=== PATIENT | female | born 1985 ===

== ENCOUNTER 2021-02-13 22:35 | Inpatient (IN) | payer BC, OTHER ==
[2021-02-13] MEDS: ELECTROLYTE-148 SOLN 1,000 ML IV SCH (23:45)
[2021-02-13 23:53] LABS: BASO % 0.5 % (0-2.0); EOS % 0.8 % (0-4.5); HEMATOCRIT 31.8 % (32.4-45.2); HEMOGLOBIN 10.7 GM/dL (10.7-15.3); LYMPH % 21.2 % (8-40); MCH 29.2 pg (25.7-33.7); MCHC 33.5 g/dl (32.0-36.0); MEAN CELL VOLUME 87.2 fl (80-96); MEAN PLT VOLUME 10.2 fl (7.5-11.1); MONO % 8.2 % (3.8-10.2); NEUT % 69.3 % (42.8-82.8); PLATELET COUNT 211 K/MM3 (134-434); RBC 3.65 M/mm3 (3.60-5.2); RDW 15.8 % (11.6-15.6); WHITE BLOOD COUNT 8.2 K/mm3 (4.0-10.0)
[2021-02-13] MEDS ORDERED: ELECTROLYTE-148 SOLN 500 ML IV ONE (23:57)
[2021-02-13] MEDS ORDERED: CITRIC ACID/SODIUM CITRATE 30 ML UNIT-DOSE CUP PO ONE (23:59)
[2021-02-14 00:02] LABS: INR 0.88 (0.83-1.09); PROTHROMBIN TIME (PATIENT) 10.9 SEC (9.7-13.0)
[2021-02-14 00:05] LABS: ACTIVATED PTT 25.7 SECONDS (25.2-36.5)
[2021-02-14 00:15] LABS: CALCIUM 9.6 mg/dL (8.5-10.1)
[2021-02-14 00:17] LABS: BLOOD UREA NITROGEN 10.1 mg/dL (7-18)
[2021-02-14 00:20] LABS: CREATININE 0.9 mg/dL (0.55-1.3)
[2021-02-14] MEDS ORDERED: morphine SULFATE/PF 0.5 MG/ML (2cc Syringe - QUVA) ONE (01:09)
[2021-02-14] MEDS ORDERED: ceFAZolin SODIUM 1 GM VIAL ONE (01:10)
[2021-02-14] MEDS ORDERED: ONDANSETRON 4 MG/2 ML VIAL ONE (01:10)
[2021-02-14] MEDS ORDERED: PHENYLEPHRINE HCL 10 MG/1 ML SINGLE DOSE VIAL ONE (01:10)
[2021-02-14] MEDS ORDERED: KETOROLAC TROMETHAMINE 30 MG/1 ML VIAL ONE (01:10)
[2021-02-14] MEDS ORDERED: OXYTOCIN 10 UNITS/ML VIAL ONE (01:10)
[2021-02-14 01:13] LABS: HIV INTERPRETATION NEGATIVE (NEGATIVE)
[2021-02-14] MEDS ORDERED: METHYLERGONOVINE MALEATE 0.2 MG/1 ML AMP IM PRN (02:05)
[2021-02-14] MEDS ORDERED: IBUPROFEN 600 MG TABLET (FP) PO PRN (02:05)
[2021-02-14] MEDS ORDERED: NIFEdipine E.R. 30 MG TABLET PO STA (02:08)
[2021-02-14] MEDS ORDERED: OXYTOCIN 20 UNITS in 0.9% NS 20 UNIT/1,000 ML INFUS.BAG IV SCH (02:15)
[2021-02-14] MEDS ORDERED: morphine SULFATE/PF 0.5 MG/ML (2cc Syringe - QUVA) SPIN ONE (02:18)
[2021-02-14] MEDS ORDERED: ONDANSETRON 4 MG/2 ML VIAL IVPUSH PRN (02:18)
[2021-02-14] MEDS ORDERED: ACETAMINOPHEN 1000 MG/100 ML VIAL (NON FORMULARY) IVPB ONE ×2 (02:20→10:45)
[2021-02-14] MEDS ORDERED: IBUPROFEN 800 MG/8 ML IJ IVPB ONE ×2 (03:01→14:56)
[2021-02-14] MEDS ORDERED: NIFEdipine E.R. 30 MG TABLET ONE (03:01)
[2021-02-14] MEDS: IBUPROFEN 800 MG/8 ML IJ IVPB PRN (03:14)
[2021-02-14 04:10] VITALS: BMI 41.1
[2021-02-14] MEDS ORDERED: LABETALOL HCL 5 MG/1 ML (200MG/40ML VIAL) IVPB ONE ×2 (04:21→06:08)
[2021-02-14] MEDS ORDERED: LABETALOL HCL IVPB ONE ×2 (04:45→06:15)
[2021-02-14] MEDS ORDERED: SODIUM CHLORIDE IVPB ONE ×2 (04:45→06:15)
[2021-02-14] MEDS ORDERED: SODIUM CHLORIDE IVPB SCH (04:45)
[2021-02-14] MEDS ORDERED: LABETALOL HCL IVPB SCH (04:45)
[2021-02-14] MEDS: DEXTROSE 5%-LACTATED RINGERS 1,000 ML IV SCH (05:18)
[2021-02-14] MEDS: CITRIC ACID/SODIUM CITRATE 30 ML UNIT-DOSE CUP PO ONE ×2 (05:48)
[2021-02-14] MEDS ORDERED: IBUPROFEN 600 MG TABLET (FP) PO ONE (05:54)
[2021-02-14] MEDS: ACETAMINOPHEN 325 MG TABLET (FP) PO PRN ×2 (05:55→23:12)
[2021-02-14] MEDS ORDERED: OXYTOCIN 20 UNITS in 0.9% NS 20 UNIT/1,000 ML INFUS.BAG IV ONE ×2 (06:40→16:53)
[2021-02-14] MEDS ORDERED: MAGNESIUM 4GM/H20 - 4 GM/100 ML IVPB IVPB ONE (07:39)
[2021-02-14] MEDS ORDERED: MAGNESIUM SULFATE 20GM/500ML - 20 GM/500 ML INFUS.BAG ONE ×2 (07:39→16:53)
[2021-02-14] MEDS ORDERED: MAGNESIUM SULFATE 20GM/500ML - 20 GM/500 ML INFUS.BAG IVPB SCH ×2 (08:15→18:00)
[2021-02-14] MEDS ORDERED: MAGNESIUM 4GM/H20 - 4 GM/100 ML IVPB IVPB SCH (08:15)
[2021-02-14 08:54] LABS: BASO % 0.4 % (0-2.0); EOS % 0.5 % (0-4.5); HEMATOCRIT 28.3 % (32.4-45.2); HEMOGLOBIN 9.9 GM/dL (10.7-15.3); LYMPH % 17.9 % (8-40); MCH 30.1 pg (25.7-33.7); MCHC 34.8 g/dl (32.0-36.0); MEAN CELL VOLUME 86.3 fl (80-96); MONO % 7.2 % (3.8-10.2); PLATELET COUNT 209 K/MM3 (134-434); RBC 3.28 M/mm3 (3.60-5.2); RDW 15.8 % (11.6-15.6); WHITE BLOOD COUNT 10.8 K/mm3 (4.0-10.0)
[2021-02-14] MEDS ORDERED: ACETAMINOPHEN INJECTION 100 ML IVPB ONE (09:58)
[2021-02-14] MEDS ORDERED: LABETALOL HCL 200 MG TABLET (FP) ONE ×2 (10:13→22:01)
[2021-02-14] MEDS: LABETALOL HCL 200 MG TABLET (FP) PO SCH ×2 (10:15→22:05)
[2021-02-14] MEDS: NIFEdipine E.R. 30 MG TABLET PO SCH (10:25)
[2021-02-14] MEDS: oxyCODONE HCL 5 MG TABLET PO PRN (20:35)
[2021-02-14] MEDS ORDERED: oxyCODONE HCL 5 MG TABLET ONE (20:35)
[2021-02-14] MEDS ORDERED: ACETAMINOPHEN 325 MG TABLET (FP) ONE (23:10)
[2021-02-15] MEDS: IBUPROFEN 800 MG/8 ML IJ IVPB PRN (00:23)
[2021-02-15] MEDS: ELECTROLYTE-148 SOLN 1,000 ML IV SCH (01:54)
[2021-02-15] MEDS: DEXTROSE 5%-LACTATED RINGERS 1,000 ML IV SCH (01:54)
[2021-02-15] MEDS ORDERED: BISACODYL 10 MG SUPP.RECT RC PRN (02:05)
[2021-02-15] MEDS: oxyCODONE HCL 5 MG TABLET PO PRN ×3 (07:50→19:47)
[2021-02-15] MEDS: ACETAMINOPHEN 325 MG TABLET (FP) PO PRN ×3 (07:51→19:46)
[2021-02-15] MEDS: LABETALOL HCL 200 MG TABLET (FP) PO SCH ×2 (10:32→22:18)
[2021-02-15] MEDS: SIMETHICONE 80 MG TAB.CHEW (FP) PO PRN ×2 (12:30→19:46)
[2021-02-15] MEDS: NIFEdipine E.R. 30 MG TABLET PO SCH (17:42)
[2021-02-15] MEDS: SENNOSIDES/DOCUSATE COMBO (SENNA PLUS) TABLET (UD) PO PRN (19:46)
[2021-02-16] MEDS: ACETAMINOPHEN 325 MG TABLET (FP) PO PRN ×6 (00:37→23:07)
[2021-02-16] MEDS: oxyCODONE HCL 5 MG TABLET PO PRN ×6 (00:38→23:08)
[2021-02-16] MEDS: SIMETHICONE 80 MG TAB.CHEW (FP) PO PRN ×3 (00:39→23:07)
[2021-02-16] MEDS: NIFEdipine E.R. 30 MG TABLET PO SCH ×2 (06:23→09:40)
[2021-02-16] MEDS: NIFEdipine E.R. 30 MG TABLET PO ONE (06:23)
[2021-02-16] MEDS: LABETALOL HCL 200 MG TABLET (FP) PO SCH ×2 (10:00→22:11)
[2021-02-16] MEDS: SENNOSIDES/DOCUSATE COMBO (SENNA PLUS) TABLET (UD) PO PRN (23:13)
[2021-02-17] MEDS: ACETAMINOPHEN 325 MG TABLET (FP) PO PRN ×2 (04:28→08:47)
[2021-02-17] MEDS: oxyCODONE HCL 5 MG TABLET PO PRN ×2 (04:28→08:46)
[2021-02-17] MEDS: NIFEdipine E.R. 30 MG TABLET PO ONE (05:48)
[2021-02-17] MEDS ORDERED: NIFEdipine E.R. 30 MG TABLET PO ONE (06:00)
[2021-02-17] MEDS: SIMETHICONE 80 MG TAB.CHEW (FP) PO PRN (08:48)
[2021-02-17] MEDS: NIFEdipine E.R. 30 MG TABLET PO SCH (09:47)
[2021-02-17] MEDS: LABETALOL HCL 200 MG TABLET (FP) PO SCH (09:47)
[2021-02-17 12:23] VITALS: BP 154/87; PULSE 89; TEMP 98
== END 2021-02-17 12:45 | disposition home or self-care (01) | DRG 786 ==
LOC: JLDR 22:35 → J3W 02-15 00:17
PROVIDERS: ADMIT Obstetrics & Gynecology; ATTEND Obstetrics & Gynecology
PROC: 10D00Z1 Extraction of Products of Conception, Low, Open Approach (ICD-10-PCS; principal; 2021-02-14)
DX: O76 Abnormality in fetal heart rate and rhythm complicating labor and delivery (principal); O11.3 Pre-existing hypertension with pre-eclampsia, third trimester; O99.214 Obesity complicating childbirth; E66.01 Morbid (severe) obesity due to excess calories; Z3A.39 39 weeks gestation of pregnancy; Z37.0 Single live birth
CPT/HCPCS: 36415; 80048; 83735; 85025; 85610; 85730; 86780; 86850; 86900; 86901; 87389; 88307-TC; C9803; J0131; U0003; U0005